=== PATIENT | female | born 1960 | race Two or more races ===

== ENCOUNTER 2016-03-30 12:44 | Day surgery (SDC) | payer OTHER ==
[~2016-03-30] VITALS: Ht 162.6 cm; Wt 70.8 kg
[~2016-03-30 12:44] MED LIST: 0.9% Sodium Chloride 1,000 ML IV PRN; Sodium Chloride LOK Flush 10 mL Syringe IV PRN; fentaNYL-PF 50 mCg/mL 2 mL Inj IVPUSH PRN
[2016-03-30] MEDS ORDERED: CHOL500051 PO (13:13)
[2016-03-30] MEDS ORDERED: OMEP20CA11 PO (13:13)
[2016-03-30 13:15] VITALS: BP 136/92; PULSE 65; RESP 16; O2SAT 98
[2016-03-30] MEDS: 0.9% Sodium Chloride 1,000 ML IV PRN ×3 (13:23→15:10)
[2016-03-30 15:28] VITALS: BP 116/80; PULSE 74; RESP 15; O2SAT 97
--- NOTE | 2016-03-30 15:39 | ENDO ---
[address] [address] ENDOSCOPY PROCEDURE PATIENT: VIGNESH SCHREIBER : 1960 MR#: [id number] ADMIT: 03/30/2016 JOB ID: [id number] DATE OF PROCEDURE: 03/30/2016 SURGEON: Tito Lunsford MD PRIMARY PROVIDER: Sujey Vaughn MD PROCEDURE: Colonoscopy with hot snare polypectomy. INDICATIONS: A 56-year-old female who reports for colon cancer screening. EQUIPMENT: PCF-H180AL SEDATION: 6 mg Versed and 150 mcg fentanyl. COMPLICATIONS: None identified. BOWEL PREPARATION: Fair, adequate exam. PROCEDURE INFORMATION: After the risks and benefits were explained, written and verbal informed consent was obtained. The patient was brought into the Endoscopy Suite and placed into the left lateral decubitus position. Sedation was achieved as above. A digital rectal examination was accomplished and mild to moderate internal external nonbleeding, nonthrombosed hemorrhoids were noted. The scope was introduced into the rectum and advanced under direct visualization to the level of the cecum, as identified by the appendiceal orifice and ileocecal valve. The scope was slowly withdrawn to carefully examine the mucosa for any defects or lesions. Retroflexed views were avoided in the rectum secondary to the sharp angle at the rectosigmoid junction. Multiple direct views were made through the dentate line for exclusion of pathology. The colon was decompressed. The scope removed from the patient who tolerated the procedure well. FINDINGS: The patient had a rather lengthy colon. Somewhat redundant. In the descending colon, there was a 5-6 mm sessile polyp removed with hot snare. Moderately engorged hemorrhoids were identified. No other significant pathology was appreciated throughout. ENDOSCOPIC DIAGNOSES: 1. Colon polyp. 2. Hemorrhoids. RECOMMENDATIONS: 1. Await histopathology. 2. Repeat colonoscopy in five years.
[2016-03-30 15:40] VITALS: BP 110/67; PULSE 65; RESP 16
[2016-03-30 15:50] VITALS: BP 105/67; PULSE 64; RESP 16
--- NOTE | 2016-04-01 15:15 | PATH ---
SURGICAL PATHOLOGY Attending Physician:Jw Reese CASE STATUS: Signed Out PATIENT NAME: VIGNESH SCHREIBER PID: [id number] : 1960 DATE COLLECTED:03/30/2016 00:00 SPECIMEN: Colon, Biopsy CLINICAL HISTORY: A: DESCENDING COLON POLYP FINAL DIAGNOSIS: 1.DESCENDING COLON POLYP: TUBULAR ADENOMA. ICD10 CODED12.4 GROSS DESCRIPTION: The specimen is received in one formalin filled container labeled with the patient's name, sublabeled "descending colon polyp" and consists of a 0.4 x 0.3 x 0.2 CM portion of tissue which is entirely submitted in one cassette. 03/31/2016 DAC MICRO DESCRIPTION: See diagnosis. ICD-9 CODES: CPT CODES: 1: 31920 Electronically Signed Out Anahi Nuñez MD [facility] Pathology [facility], [place] [address] Technical component performed at [facility], [address] [place] [address] Ave[address], [place], [address]
== END 2016-03-30 23:59 | disposition home or self-care (01) ==
LOC: END 12:44
PROVIDERS: ATTEND Internal Medicine Gastroenterology
DX: Z12.11 Encounter for screening for malignant neoplasm of colon (principal); D12.4 Benign neoplasm of descending colon; K64.9 Unspecified hemorrhoids; K21.9 Gastro-esophageal reflux disease without esophagitis
CPT/HCPCS: 45385; 99153; G0500; J2250; J7030